=== PATIENT | female | born 1985 | race African-American/Black ===

== ENCOUNTER 2016-05-31 11:33 | Emergency (ER) | payer OTHER ==
[~2016-05-31] VITALS: Ht 172.7 cm; Wt 88.0 kg
[~2016-05-31 11:33] MED LIST: FOLIC ACID; antibiotic
[2016-05-31 12:00] VITALS: BP 118/65
== END 2016-05-31 13:01 | disposition home or self-care (01) ==
LOC: ER 12:44
DX: L23.9 Allergic contact dermatitis, unspecified cause (principal)
CPT/HCPCS: 99283

== ENCOUNTER 2017-05-30 00:04 | Emergency (ER) | payer OTHER ==
[~2017-05-30] VITALS: Ht 175.3 cm; Wt 110.0 kg
[2017-05-30] MEDS ORDERED: ASPIRIN 81MG TABLET PO ONE (00:30)
[2017-05-30 00:56] LABS: BASOPHILS % 1.1 % (0.0-2.0); EOSINOPHILS % 2.7 % (0.0-5.0); HEMATOCRIT. 38.2 % (36.0-48.0); LYMPHOCYTES % 26.1 % (20.0-50.0); MEAN CORPUSCULAR HEMOGLOBIN 28.2 pg (28.0-32.0); MEAN PLATELET VOLUME 7.4 fl (7.4-10.4); MONOCYTES % 10.9 % (2.0-8.0); NEUTROPHILS % 59.2 % (40.0-76.0); PLATELET 285 x1000/uL (130-400); RED BLOOD CELL COUNT 4.59 mill/uL (4.2-5.4); RED CELL DISTRIBUTION WIDTH 13.8 % (11.6-14.6)
[2017-05-30 01:01] LABS: PROTHROMBIN TIME 10.1 sec (9.4-11.6)
[2017-05-30 01:04] LABS: CHLORIDE 103 mEq/L (98-107); ETHANOL BLOOD < 10 mg/dL
[2017-05-30 01:16] LABS: HCG SCREEN NEGATIVE
[2017-05-30 01:17] VITALS: BP 117/74
[2017-05-30 02:27] LABS: *AMPHETAMINES SCREEN URINE NEGATIVE (NEGATIVE); *BARBITURATES SCREEN URINE NEGATIVE (NEGATIVE); *BENZODIAZEPINES SCREEN URINE NEGATIVE (NEGATIVE); *COCAINE SCREEN URINE NEGATIVE (NEGATIVE); CANNABINOID URINE SCREEN NEGATIVE (NEGATIVE); METHADONE URINE SCREEN NEGATIVE (NEGATIVE); OPIATES URINE SCREEN NEGATIVE (NEGATIVE); PHENCYCLIDINE URINE SCREEN NEGATIVE (NEGATIVE)
== END 2017-05-30 21:44 | disposition left against medical advice (07) ==
LOC: ER 09:17
DX: R07.9 Chest pain, unspecified (principal); J45.909 Unspecified asthma, uncomplicated; Z79.82 Long term (current) use of aspirin
CPT/HCPCS: 36415; 71045; 80053; 80305; 83690; 83880; 84484; 84703; 85025; 85610; 93005; 99285; G0482

== ENCOUNTER 2017-10-10 20:20 | Emergency (ER) | payer OTHER | END 2017-10-11 02:07 | disposition left against medical advice (07) | LOC: ER 20:20 | DX: M79.673 Pain in unspecified foot (principal); Z53.21 Procedure and treatment not carried out due to patient leaving prior to being seen by health care provider ==

== ENCOUNTER 2018-02-08 07:59 | Emergency (ER) | payer OTHER ==
[~2018-02-08] VITALS: Ht 172.7 cm; Wt 227.0 kg
[2018-02-08] MEDS ORDERED: ACETAMINOPHEN 325MG TABLET PO STA (08:38)
[2018-02-08] MEDS ORDERED: MAGNESIUM/ALUMINUM HYDROXIDE/SIMETHICONE 30ML UDC PO STA (08:38)
[2018-02-08] MEDS ORDERED: SODIUM CHLORIDE 0.9% 1,000 ML IV ONE (08:38)
[2018-02-08] MEDS ORDERED: FAMOTIDINE 20MG/2ML VIAL IV STA (08:38)
[2018-02-08] MEDS ORDERED: VISCOUS LIDOCAINE 2% 15 ML UDC PO STA (08:38)
[2018-02-08 09:17] LABS: BASOPHILS % 0.7 % (0.0-2.0); EOSINOPHILS % 2.8 % (0.0-5.0); HEMATOCRIT. 37.4 % (36.0-48.0); HEMOGLOBIN. 12.6 g/dL (12.0-16.0); LYMPHOCYTES % 26.2 % (20.0-50.0); MEAN CORPUSCULAR HEMOGLOBIN 28.6 pg (28.0-32.0); MEAN CORPUSCULAR VOLUME 84.6 fL (81.0-99.0); MEAN PLATELET VOLUME 7.2 fl (7.4-10.4); MONOCYTES % 8.8 % (2.0-8.0); NEUTROPHILS % 61.5 % (40.0-76.0); PLATELET 276 x1000/uL (130-400); RED BLOOD CELL COUNT 4.42 mill/uL (4.2-5.4); RED CELL DISTRIBUTION WIDTH 13.8 % (11.6-14.6)
[2018-02-08 09:18] LABS: CLARITY URINE CLOUDY (CLEAR); COLOR URINE YELLOW (YELLOW); KETONES URINE NEGATIVE (NEGATIVE); LEUKOCYTE ESTERASE URINE 1+ (NEGATIVE); NITRITE URINE NEGATIVE (NEGATIVE); OCCULT BLOOD URINE 3+ (NEGATIVE); PH URINE 5.5 (4.5-8.0); PROTEIN URINE TRACE (NEGATIVE); SPECIFIC GRAVITY URINE 1.035 (1.005-1.030)
[2018-02-08 09:20] LABS: CHLORIDE 107 mEq/L (98-107)
[2018-02-08 09:24] LABS: INR 1.1; PROTHROMBIN TIME 10.6 sec (9.1-11.1)
[2018-02-08 10:04] LABS: OPIATES URINE SCREEN NEGATIVE (NEGATIVE); PHENCYCLIDINE URINE SCREEN NEGATIVE (NEGATIVE)
[2018-02-08 10:05] LABS: *AMPHETAMINES SCREEN URINE NEGATIVE (NEGATIVE); *BENZODIAZEPINES SCREEN URINE NEGATIVE (NEGATIVE); *COCAINE SCREEN URINE NEGATIVE (NEGATIVE); CANNABINOID URINE SCREEN NEGATIVE (NEGATIVE); METHADONE URINE SCREEN NEGATIVE (NEGATIVE)
[2018-02-08 10:10] LABS: *BARBITURATES SCREEN URINE NEGATIVE (NEGATIVE)
[2018-02-08 10:50] VITALS: BP 115/61
== END 2018-02-08 11:07 | disposition home or self-care (01) ==
LOC: ER 07:59
DX: D25.9 Leiomyoma of uterus, unspecified (principal); N39.0 Urinary tract infection, site not specified; J45.909 Unspecified asthma, uncomplicated
CPT/HCPCS: 36415; 76830; 76856; 80053; 80305; 81003; 81025; 83690; 85025; 85610; 96374; 99284; J3490; J7030

== ENCOUNTER 2018-04-24 15:03 | Emergency (ER) | payer OTHER ==
[~2018-04-24] VITALS: Ht 172.7 cm; Wt 98.0 kg
[2018-04-24] MEDS ORDERED: MAGNESIUM/ALUMINUM HYDROXIDE/SIMETHICONE 30ML UDC PO STA (21:17)
[2018-04-24] MEDS ORDERED: FAMOTIDINE 20MG/2ML VIAL IV STA (21:17)
[2018-04-24] MEDS ORDERED: SODIUM CHLORIDE 0.9% 1,000 ML IV ONE (21:17)
[2018-04-24 22:09] LABS: BASOPHILS % 0.7 % (0.0-2.0); EOSINOPHILS % 2.5 % (0.0-5.0); HEMATOCRIT. 37.3 % (36.0-48.0); HEMOGLOBIN. 12.4 g/dL (12.0-16.0); LYMPHOCYTES % 33.6 % (20.0-50.0); MEAN CORPUSCULAR HEMOGLOBIN 28.7 pg (28.0-32.0); MEAN CORPUSCULAR VOLUME 86.1 fL (81.0-99.0); MEAN PLATELET VOLUME 7.7 fl (7.4-10.4); MONOCYTES % 8.2 % (2.0-8.0); PLATELET 255 x1000/uL (130-400); RED BLOOD CELL COUNT 4.33 mill/uL (4.2-5.4); RED CELL DISTRIBUTION WIDTH 13.3 % (11.6-14.6)
[2018-04-24 22:14] LABS: CHLORIDE 106 mEq/L (98-107); PROTHROMBIN TIME 10.1 sec (9.1-11.1)
[2018-04-24 23:29] VITALS: BP 120/84
== END 2018-04-24 23:55 | disposition home or self-care (01) ==
LOC: ER 15:03
DX: R10.13 Epigastric pain (principal); K92.0 Hematemesis; E88.09 Other disorders of plasma-protein metabolism, not elsewhere classified; R53.83 Other fatigue
CPT/HCPCS: 36415; 71045; 80053; 81025; 85025; 85610; 96361; 96374; 99284; J3490; J7030

== ENCOUNTER 2018-05-02 18:11 | Emergency (ER) | payer OTHER ==
[~2018-05-02] VITALS: Ht 172.7 cm; Wt 102.0 kg
[2018-05-02] MEDS ORDERED: KETOROLAC 60MG/2ML VIAL IM ONE (18:38)
[2018-05-02 20:11] VITALS: BP 107/69
== END 2018-05-02 20:21 | disposition home or self-care (01) ==
LOC: ER 18:20
DX: G56.32 Lesion of radial nerve, left upper limb (principal); J45.909 Unspecified asthma, uncomplicated
CPT/HCPCS: 81025; 96372; 99283; J1885

== ENCOUNTER 2019-04-10 08:31 | Emergency (ER) | payer OTHER ==
[~2019-04-10] VITALS: Ht 172.7 cm; Wt 103.0 kg
[2019-04-10 09:30] VITALS: BP 141/93
[2019-04-10] MEDS ORDERED: KETOROLAC 60MG/2ML VIAL IM ONE (09:30)
== END 2019-04-10 11:09 | disposition home or self-care (01) ==
LOC: ER 08:31
DX: M25.562 Pain in left knee (principal)
CPT/HCPCS: 73562; 96372; 99283; J1885

== ENCOUNTER 2019-04-25 07:51 | Emergency (ER) | payer OTHER ==
[~2019-04-25] VITALS: Ht 172.7 cm; Wt 81.0 kg
[2019-04-25 08:00] VITALS: BP 135/69
== END 2019-04-25 08:59 | disposition home or self-care (01) ==
LOC: ER 07:51
DX: H60.8X2 Other otitis externa, left ear (principal); R03.0 Elevated blood-pressure reading, without diagnosis of hypertension
CPT/HCPCS: 99283

== ENCOUNTER 2019-12-07 08:38 | Emergency (ER) | payer MEDICAID, OTHER ==
[~2019-12-07] VITALS: Ht 175.3 cm; Wt 107.0 kg
[2019-12-07 08:40] VITALS: BP 137/78
[2019-12-07] MEDS ORDERED: AZITHROMYCIN 500 MG TABLET PO STA (09:07)
[2019-12-07] MEDS ORDERED: LIDOCAINE HCL 1% 20ML VIAL (Pyxis) INJ INFIL STA (09:07)
[2019-12-07] MEDS ORDERED: CEFTRIAXONE SODIUM 250 MG/VIAL IM STA (09:07)
[2019-12-07 10:06] LABS: CLARITY URINE CLEAR (CLEAR); COLOR URINE YELLOW (YELLOW); KETONES URINE NEGATIVE (NEGATIVE); LEUKOCYTE ESTERASE URINE 2+ (NEGATIVE); NITRITE URINE NEGATIVE (NEGATIVE); OCCULT BLOOD URINE TRACE (NEGATIVE); PROTEIN URINE NEGATIVE (NEGATIVE); SPECIFIC GRAVITY URINE 1.023 (1.005-1.030); UROBILINOGEN URINE 0.2 E.U./dL (0.2-1.0)
== END 2019-12-07 10:40 | disposition home or self-care (01) ==
LOC: ER 09:01
DX: R51 Headache (principal); N76.0 Acute vaginitis; N39.0 Urinary tract infection, site not specified; J45.909 Unspecified asthma, uncomplicated; Z98.890 Other specified postprocedural states
CPT/HCPCS: 81003; 81025; 87086; 96372; 99283; J0696; J3490; 87491; 87591

== ENCOUNTER 2020-01-21 12:22 | Emergency (ER) | payer SELFPAY ==
[~2020-01-21] VITALS: Ht 172.7 cm; Wt 100.0 kg
[2020-01-21 13:22] LABS: BASOPHILS % 0.3 % (0.0-2.0); EOSINOPHILS % 2.8 % (0.0-5.0); HEMATOCRIT. 39.2 % (36.0-48.0); HEMOGLOBIN. 13.1 g/dL (12.0-16.0); LYMPHOCYTES % 30.5 % (20.0-50.0); MEAN CORPUSCULAR HEMOGLOBIN 28.2 pg (28.0-32.0); MEAN CORPUSCULAR VOLUME 84.1 fL (81.0-99.0); MEAN PLATELET VOLUME 7.4 fl (7.4-10.4); MONOCYTES % 9.7 % (2.0-8.0); NEUTROPHILS % 56.7 % (40.0-76.0); PLATELET 334 x1000/uL (130-400); RED BLOOD CELL COUNT 4.66 mill/uL (4.2-5.4); RED CELL DISTRIBUTION WIDTH 13.5 % (11.6-14.6)
[2020-01-21 13:26] LABS: CLARITY URINE CLOUDY (CLEAR); COLOR URINE YELLOW (YELLOW); KETONES URINE NEGATIVE (NEGATIVE); LEUKOCYTE ESTERASE URINE 1+ (NEGATIVE); NITRITE URINE NEGATIVE (NEGATIVE); OCCULT BLOOD URINE NEGATIVE (NEGATIVE); PH URINE 7.5 (4.5-8.0); PROTEIN URINE NEGATIVE (NEGATIVE); SPECIFIC GRAVITY URINE 1.021 (1.005-1.030)
[2020-01-21 13:32] LABS: PROTHROMBIN TIME 10.4 sec (9.6-11.0)
[2020-01-21 13:34] LABS: CHLORIDE 104 mEq/L (98-107)
[2020-01-21 13:36] LABS: HCG SCREEN NEGATIVE
[2020-01-21 14:34] VITALS: BP 116/51
== END 2020-01-21 14:35 | disposition home or self-care (01) ==
LOC: ER 12:22
DX: B37.3 Candidiasis of vulva and vagina (principal); N39.0 Urinary tract infection, site not specified; J45.909 Unspecified asthma, uncomplicated
CPT/HCPCS: 36415; 80053; 81003; 84703; 85025; 99283

== ENCOUNTER 2022-02-17 20:47 | Emergency (ER) | payer OTHER ==
[~2022-02-17] VITALS: Ht 172.7 cm; Wt 110.0 kg
[2022-02-18 01:40] VITALS: BP 128/75
[2022-02-18] MEDS ORDERED: DIPHENHYDRAMINE 25MG CAPSULE PO ONE (02:00)
== END 2022-02-18 02:50 | disposition home or self-care (01) ==
LOC: ER 20:47
DX: R07.89 Other chest pain (principal); J45.909 Unspecified asthma, uncomplicated
CPT/HCPCS: 71045; 93005; 99283; Q0163

== ENCOUNTER 2022-03-07 10:34 | Emergency (ER) | payer OTHER ==
[~2022-03-07] VITALS: Ht 175.3 cm; Wt 106.0 kg
[2022-03-07 10:50] VITALS: BP 132/90
[2022-03-07] MEDS ORDERED: IBUPROFEN 400MG TABLET PO ONE (11:15)
[2022-03-07 11:58] LABS: BASOPHILS % 1.1 % (0.0-2.0); EOSINOPHILS % 2.4 % (0.0-5.0); HEMATOCRIT. 35.9 % (36.0-48.0); HEMOGLOBIN. 11.9 g/dL (12.0-16.0); LYMPHOCYTES % 23.5 % (20.0-50.0); MEAN CORPUSCULAR HEMOGLOBIN 27.7 pg (28.0-32.0); MEAN CORPUSCULAR VOLUME 83.4 fL (81.0-99.0); MEAN PLATELET VOLUME 7.5 fl (7.4-10.4); MONOCYTES % 9.3 % (2.0-8.0); NEUTROPHILS % 63.7 % (40.0-76.0); PLATELET 314 x1000/uL (130-400); RED CELL DISTRIBUTION WIDTH 14.2 % (11.6-14.6)
[2022-03-07 12:07] LABS: CHLORIDE 105 mEq/L (98-107)
[2022-03-07 12:28] LABS: HCG SCREEN NEGATIVE
[2022-03-07] MEDS ORDERED: IBUP-2028 MT (13:17)
== END 2022-03-07 13:34 | disposition home or self-care (01) ==
LOC: ER 10:34
DX: F41.9 Anxiety disorder, unspecified (principal); R07.89 Other chest pain; Z98.890 Other specified postprocedural states; R06.02 Shortness of breath
CPT/HCPCS: 36415; 71045; 80053; 84484; 84703; 85025; 99284

== ENCOUNTER 2022-03-09 15:27 | Emergency (ER) | payer OTHER ==
[~2022-03-09] VITALS: Ht 175.3 cm; Wt 107.0 kg
[~2022-03-09 15:27] MED LIST changes: -FOLIC ACID; +IBUP-2028 MT; -antibiotic
[2022-03-09 18:05] VITALS: BP 117/76
== END 2022-03-09 18:50 | disposition home or self-care (01) ==
LOC: ER 15:27
DX: R00.2 Palpitations (principal); B34.9 Viral infection, unspecified
CPT/HCPCS: 71045; 81025; 93005; 99283

== ENCOUNTER 2022-03-14 18:07 | Emergency (ER) | payer OTHER ==
[~2022-03-14] VITALS: Ht 177.8 cm; Wt 95.0 kg
[2022-03-14 18:36] VITALS: BP 142/81
== END 2022-03-14 18:58 | disposition left against medical advice (07) ==
LOC: ER 18:07
DX: Z53.21 Procedure and treatment not carried out due to patient leaving prior to being seen by health care provider (principal)

== ENCOUNTER 2022-03-16 08:05 | Emergency (ER) | payer OTHER ==
[~2022-03-16] VITALS: Ht 175.3 cm; Wt 104.0 kg
[2022-03-16 08:12] VITALS: BP 137/83
== END 2022-03-16 09:47 | disposition home or self-care (01) ==
LOC: ER 08:05
DX: R53.83 Other fatigue (principal)
CPT/HCPCS: 81025; 99282

== ENCOUNTER 2022-03-30 21:33 | Emergency (ER) | payer OTHER ==
[~2022-03-30] VITALS: Ht 175.3 cm; Wt 105.0 kg
[2022-03-30 21:37] VITALS: BP 148/97
== END 2022-03-31 02:15 | disposition left against medical advice (07) ==
LOC: ER 21:33
DX: Z53.21 Procedure and treatment not carried out due to patient leaving prior to being seen by health care provider (principal)

== ENCOUNTER 2022-07-09 16:12 | Emergency (ER) | payer OTHER ==
[~2022-07-09] VITALS: Ht 175.3 cm; Wt 84.1 kg
[2022-07-09 16:19] VITALS: BP 119/65
[2022-07-09] MEDS ORDERED: FAMOTIDINE 20MG TABLET PO ONE (17:00)
[2022-07-09] MEDS ORDERED: DIPHENHYDRAMINE 25MG CAPSULE PO ONE (17:00)
[2022-07-09 17:53] LABS: BASOPHILS % 1.4 % (0.0-2.0); HEMATOCRIT. 32.1 % (36.0-48.0); HEMOGLOBIN. 10.4 g/dL (12.0-16.0); LYMPHOCYTES % 43.6 % (20.0-50.0); MEAN CORPUSCULAR HEMOGLOBIN 25.8 pg (28.0-32.0); MEAN CORPUSCULAR VOLUME 79.4 fL (81.0-99.0); MEAN PLATELET VOLUME 7.9 fl (7.4-10.4); PLATELET 365 x1000/uL (130-400); RED BLOOD CELL COUNT 4.04 mill/uL (4.2-5.4); RED CELL DISTRIBUTION WIDTH 17.7 % (11.6-14.6)
[2022-07-09 18:04] LABS: CHLORIDE 106 mEq/L (98-107)
[2022-07-09 18:15] LABS: CLARITY URINE CLEAR (CLEAR); COLOR URINE YELLOW (YELLOW); KETONES URINE NEGATIVE (NEGATIVE); LEUKOCYTE ESTERASE URINE NEGATIVE (NEGATIVE); NITRITE URINE NEGATIVE (NEGATIVE); OCCULT BLOOD URINE 3+ (NEGATIVE); PROTEIN URINE TRACE (NEGATIVE); SPECIFIC GRAVITY URINE 1.024 (1.005-1.030)
[2022-07-09] MEDS ORDERED: FAMO20TA8 MT (18:51)
[2022-07-09] MEDS ORDERED: ACET-2708 PO (18:51)
== END 2022-07-09 19:00 | disposition home or self-care (01) ==
LOC: ER 16:12
DX: K21.9 Gastro-esophageal reflux disease without esophagitis (principal); L29.9 Pruritus, unspecified; Z98.890 Other specified postprocedural states
CPT/HCPCS: 36415; 71045; 80053; 81003; 81025; 85025; 99284; Q0163

== ENCOUNTER 2023-11-22 09:18 | Emergency (ER) | payer MEDICAID, OTHER ==
[~2023-11-22] VITALS: Ht 170.2 cm; Wt 64.0 kg
[~2023-11-22 09:18] MED LIST changes: +ACET-2708 PO; +FAMO20TA8 MT
[2023-11-22 09:24] VITALS: O2SAT 99
[2023-11-22 09:25] VITALS: BP 119/64; PULSE 77; RESP 18; TEMP 98.1; O2SAT 100
[2023-11-22 10:12] LABS: EOSINOPHILS % 2.9 % (0.0-5.0); HEMATOCRIT. 35.5 % (36.0-48.0); HEMOGLOBIN. 11.6 g/dL (12.0-16.0); MEAN CORPUSCULAR HEMOGLOBIN 28.7 pg (28.0-32.0); MEAN CORPUSCULAR HGB CONC 32.7 g/dL (31.0-37.0); MEAN CORPUSCULAR VOLUME 87.8 fL (81.0-99.0); MEAN PLATELET VOLUME 7.5 fl (7.4-10.4); MONOCYTES % 6.9 % (2.0-8.0); NEUTROPHILS % 62.2 % (40.0-76.0); PLATELET 311 x1000/uL (130-400); RED BLOOD CELL COUNT 4.04 mill/uL (4.2-5.4); RED CELL DISTRIBUTION WIDTH 13.8 % (11.6-14.6); WHITE BLOOD COUNT 4.6 x1000/uL (4.5-11.0)
[2023-11-22 10:21] LABS: CHLORIDE 108 mEq/L (98-107); POTASSIUM 4.1 mEq/L (3.5-5.1); SODIUM 138 mEq/L (136-145)
[2023-11-22 10:22] LABS: CALCIUM 9.5 mg/dL (8.7-10.4); CARBON DIOXIDE 24 mEq/L (21-32); PROTHROMBIN TIME 10.9 sec (9.6-11.0)
[2023-11-22 10:27] LABS: CREATININE 0.8 mg/dL (0.6-1.0); GLUCOSE 85 mg/dL (70-105); UREA NITROGEN BLOOD 8 mg/dL (9-23)
[2023-11-22 10:29] LABS: ALANINE AMINOTRANSFERASE 16 IU/L (10-49); ALBUMIN 4.3 g/dL (3.2-4.8); ASPARTATE AMINOTRANSFERASE 22 IU/L (<34); BILIRUBIN DIRECT 0.2 mg/dL (<=3.0); BILIRUBIN TOTAL 0.7 mg/dL (0.1-1.0)
[2023-11-22 10:34] LABS: HCG SCREEN NEGATIVE
[2023-11-22] MEDS: SODIUM CHLORIDE 0.9% 1,000 ML IV ONE (10:40)
[2023-11-22] MEDS: ONDANSETRON HCL 4MG/2ML INJ IV STA (10:40)
[2023-11-22] MEDS ORDERED: CIPR500T5 MT (11:45)
[2023-11-22] MEDS ORDERED: IOHEXOL-300 100 ML BOTTLE ONE (12:37)
== END 2023-11-22 12:15 | disposition home or self-care (01) ==
LOC: ER 09:18
DX: R10.32 Left lower quadrant pain (principal); R11.2 Nausea with vomiting, unspecified
CPT/HCPCS: 99285; 74177; 96374; 96361; 80076; 80048; 84703; 83690; 85025; 85610; 36415; Q9967; J2405; J7030

== ENCOUNTER 2024-02-28 09:20 | Emergency (ER) | payer MEDICAID ==
[~2024-02-28] VITALS: Ht 172.7 cm; Wt 75.0 kg
[~2024-02-28 09:20] MED LIST changes: +CIPR500T5 MT
[2024-02-28 09:26] VITALS: TEMP 98.3; O2SAT 100
[2024-02-28 10:31] LABS: BASOPHILS % 1.3 % (0.0-2.0); EOSINOPHILS % 2.5 % (0.0-5.0); HEMATOCRIT. 35.8 % (36.0-48.0); HEMOGLOBIN. 11.4 g/dL (12.0-16.0); LYMPHOCYTES % 39.1 % (20.0-50.0); MEAN CORPUSCULAR HEMOGLOBIN 27.1 pg (28.0-32.0); MEAN CORPUSCULAR HGB CONC 31.7 g/dL (31.0-37.0); MEAN CORPUSCULAR VOLUME 85.4 fL (81.0-99.0); MEAN PLATELET VOLUME 8.2 fl (7.4-10.4); MONOCYTES % 9.3 % (2.0-8.0); NEUTROPHILS % 47.8 % (40.0-76.0); PLATELET 305 x1000/uL (130-400); RED BLOOD CELL COUNT 4.19 mill/uL (4.2-5.4)
[2024-02-28 10:39] LABS: CHLORIDE 105 mEq/L (98-107); POTASSIUM 4.6 mEq/L (3.5-5.1); SODIUM 138 mEq/L (136-145)
[2024-02-28 10:40] LABS: CALCIUM 9.5 mg/dL (8.7-10.4); CARBON DIOXIDE 29 mEq/L (21-32)
[2024-02-28 10:43] LABS: HCG SCREEN NEGATIVE
[2024-02-28 10:45] LABS: CREATININE 0.8 mg/dL (0.6-1.0); GLUCOSE 86 mg/dL (70-105); UREA NITROGEN BLOOD 7 mg/dL (9-23)
[2024-02-28 10:47] LABS: ALANINE AMINOTRANSFERASE 15 IU/L (10-49); ALBUMIN 4.1 g/dL (3.2-4.8); ASPARTATE AMINOTRANSFERASE 22 IU/L (<34); BILIRUBIN DIRECT 0.2 mg/dL (<=3.0); BILIRUBIN TOTAL 0.9 mg/dL (0.1-1.0); PROTEIN TOTAL 6.7 g/dL (6.0-8.3)
[2024-02-28 12:25] LABS: CLARITY URINE CLEAR (CLEAR); COLOR URINE YELLOW (YELLOW); GLUCOSE URINE NEGATIVE (NEGATIVE); KETONES URINE NEGATIVE (NEGATIVE); LEUKOCYTE ESTERASE URINE NEGATIVE (NEGATIVE); NITRITE URINE NEGATIVE (NEGATIVE); OCCULT BLOOD URINE NEGATIVE (NEGATIVE); PROTEIN URINE NEGATIVE (NEGATIVE); SPECIFIC GRAVITY URINE 1.009 (1.005-1.030); UROBILINOGEN URINE 0.2 E.U./dL (0.2-1.0)
[2024-02-28 12:39] VITALS: BP 125/71; PULSE 80; RESP 17; O2SAT 99
== END 2024-02-28 12:41 | disposition home or self-care (01) ==
LOC: ER 09:28
DX: R19.7 Diarrhea, unspecified (principal); B89 Unspecified parasitic disease
CPT/HCPCS: 36415; 80048; 80076; 81003; 81025; 84703; 85025; 86850; 86900; 99283

== ENCOUNTER 2024-03-07 20:24 | Emergency (ER) | payer MEDICAID ==
[2024-03-07 20:34] VITALS: PULSE 102; O2SAT 100
== END 2024-03-07 22:39 | disposition left against medical advice (07) ==
LOC: ER 20:24
DX: R10.9 Unspecified abdominal pain (principal); Z53.21 Procedure and treatment not carried out due to patient leaving prior to being seen by health care provider